=== PATIENT | female | born 1945 | race Caucasian/White ===

== ENCOUNTER → 2016-08-09 | Outpatient (CLI) | payer OTHER | LOC: RAD 10:54 | DX: Z12.31 Encounter for screening mammogram for malignant neoplasm of breast (principal) ==

== ENCOUNTER → 2018-06-25 | Outpatient (CLI) | payer OTHER | LOC: NUC 04-09 01:25 | DX: Z12.31 Encounter for screening mammogram for malignant neoplasm of breast (principal); M81.0 Age-related osteoporosis without current pathological fracture; Z78.0 Asymptomatic menopausal state ==

== ENCOUNTER 2019-04-01 14:20 | Emergency (ER) | payer OTHER ==
[~2019-04-01] VITALS: Ht 167.6 cm; Wt 51.3 kg
[2019-04-01] MEDS ORDERED: NORCO 5-325 TA1 EAC1 PO (16:48)
[2019-04-01 17:07] VITALS: BP 170/45
== END 2019-04-01 17:08 | disposition home or self-care (01) ==
LOC: ER 14:20
DX: S52.021A Displaced fracture of olecranon process without intraarticular extension of right ulna, initial encounter for closed fracture (principal); E11.9 Type 2 diabetes mellitus without complications; W00.2XXA Other fall from one level to another due to ice and snow, initial encounter; Y93.89 Activity, other specified; Y92.89 Other specified places as the place of occurrence of the external cause; Y99.8 Other external cause status

== ENCOUNTER 2019-04-04 12:06 | Day surgery (SDC) | payer OTHER ==
[~2019-04-04 12:06] MED LIST: NORCO 5-325 TA1 EAC1 PO
[2019-04-04 14:33] LABS: HEMATOCRIT 34.4 % (37.0-47.0); HEMOGLOBIN 11.3 gm/dL (12.0-15.0); MCH 30.3 pg (26.0-34.0); MCHC 32.9 g/dL (28.0-37.0); MCV 92.3 fL (80.0-100.0); RBC 3.73 mil/uL (4.20-5.00); RDW 14.2 % (10.5-14.5); WBC 6.9 thou/uL (4.0-11.0)
[2019-04-04 14:42] LABS: CALCIUM 9.7 mg/dL (8.5-10.1); CREATININE 0.9 mg/dL (0.6-1.0); POTASSIUM 5.4 mmol/L (3.5-5.1)
--- NOTE | 2019-04-04 22:14 | O ---
[facility] [address] [place] [address] OPERATIVE REPORT Name: LIVE LOPEZ Room #: DEP [facility].#: [id number] Admission: 04/04/19 Attend Phys: Hong Marrufo MD Discharge: 04/04/19 Date of : 41 Report #: [id number] THIS REPORT FOR: //name// CC: Hong Childerse Jordan DATE OF SERVICE: 04/04/2019 SERVICE: Orthopedics. FACILITY: [facility]. SURGEON: Hong Marrufo MD BRICK MACHINE OPERATOR: Samira Ortiz NP. INDICATION FOR BRICK MACHINE OPERATOR: Extremity positioning, retraction, assistance with the provisional fixation and definitive fixation. PREOPERATIVE DIAGNOSES: Comminuted intra-articular displaced right olecranon fracture. POSTOPERATIVE DIAGNOSIS: Comminuted intra-articular displaced right olecranon fracture. PROCEDURE: Open reduction and internal fixation, right olecranon fracture with plate. COMPLICATIONS: None. DRAINS: None. SPECIMENS: None. ANESTHESIA: General with regional. ESTIMATED BLOOD LOSS: 15 mL. FINDINGS: Synthes olecranon plate. HISTORY AND INDICATIONS: The patient is a 73-year-old right-hand dominant female who fell sustaining a comminuted intraarticular fracture, right olecranon. She was indicated for surgical treatment. Risks, benefits, alternatives, and indication of surgery discussed with her and her daughter and they gave full informed consent and wished to move forward with surgery. Risks include but not limited to pain, bleeding, infection, injury to nerves or blood [facility] [place] [address] OPERATIVE REPORT Name: LIVE LOPEZ Room #: DEP [facility] M..#: [id number] Admission: 04/04/19 Attend Phys: Hong Marrufo MD Discharge: 04/04/19 Date of : 41 Report #: [id number] vessels, malunion, nonunion, symptomatic hardware, need for further surgery including hardware removal and revision as well as complications related to anesthesia such as stroke, heart attack, pulmonary complications, thromboembolic disease and . Despite these risks, she wished to proceed. PROCEDURE IN DETAIL: After right upper extremity was correctly identified as the operative extremity, the patient underwent placement of single shot regional nerve block. She was then taken to the operating room where general anesthesia was induced without complication. She was turned into lateral decubitus position with the right side up, left side down padded appropriately. Prophylactic antibiotics were administered at appropriate time. Time-out procedure was performed. Right upper extremity was prepped and draped in standard sterile fashion prior to the timeout. Esmarch was used. Tourniquet inflated to 250 mmHg. Total tourniquet time was approximately 70 minutes. Standard posterior approach was made to the elbow and the fracture was exposed. The fracture was displaced further and the fracture hematoma was evacuated. The joint was thoroughly irrigated. There were essentially 3 segments. There was a large olecranon tip fragment. There was a second articular fragment that was radial in the metaphyseal bone and there was a shaft fragment. There was some other comminution. We left the soft tissue attachments intact to allow for some continued stability. The 2 articular segments on the olecranon side were anatomically reduced against the humerus and the elbow was extended and good cortical fixation was achieved in the posterior cortex. The plate was then applied to the bone and was provisionally fixed with K wires on both sides. We then placed the distal compression screw and this provided good compression across the fracture and then placed locking screws in the proximal fragment and then I placed the so-called home run screw across the fracture providing compression as well with a locking screw and then checked the fixation and the alignment and reduction once again with the x-ray in multiple planes, which had been done prior to placement of any proximal screws while the K-wires were still in place. I was happy with the appearance. There was no evidence of intra-articular fracture. We then placed a second shaft screw along the oval hole and then placed this in decompression loosening both the proximal locking and the first shaft compression screw and then adding some additional compression across the fracture. This provided excellent reduction and compression across the fracture. There was one additional metaphyseal segment that was displacing radially, so I reduced this and then placed a K-wire across the fracture and then prior to exiting the ulnar sided cortex, bent and cut the K-wire and then drove it across the fracture. It was in a stable position at this point. We used x-rays in multiple planes throughout the procedure, confirming that there was no articular penetration and the reduction was concentric along the distal humerus. Final screws were placed in the locking holes proximally and then in the metaphysis on the distal side of the fragment and then a final cortical screw was placed distally with therefore 6 cortices of nonlocking shaft screws. Final x-rays were taken. We took it through full range of motion and everything was stable and there was no mechanical [facility] [address] [place] [address] OPERATIVE REPORT Name: LIVE LOPEZ Room #: DEP [facility] Patience#: [id number] Admission: 04/04/19 Attend Phys: Hong Marrufo MD Discharge: 04/04/19 Date of : 41 Report #: [id number] impingement. The wound was then copiously irrigated. A deep layer was closed over the plate and then the skin was closed with 2-0 Vicryl followed by 3-0 nylon in diagonal mattress suture fashion. Sterile dressing was applied followed by a well-padded long arm posterior splint. The patient was awakened from anesthesia and taken to recovery room in stable condition. No complications. All counts were correct. <ELECTRONICALLY SIGNED> By: Hong Marrufo MD 04/04/19 2214 [id number] Hong Marrufo MD /nt
== END 2019-04-04 19:25 | disposition home or self-care (01) ==
LOC: TBA 12:06 → OR 12:06 → TBA 12:08 → OR 19:25
PROVIDERS: Anesthesiology
DX: S52.021A Displaced fracture of olecranon process without intraarticular extension of right ulna, initial encounter for closed fracture (principal); E10.9 Type 1 diabetes mellitus without complications; E78.00 Pure hypercholesterolemia, unspecified; E03.9 Hypothyroidism, unspecified; M19.90 Unspecified osteoarthritis, unspecified site; Z98.890 Other specified postprocedural states; Z79.899 Other long term (current) drug therapy; Z79.891 Long term (current) use of opiate analgesic; Z96.642 Presence of left artificial hip joint; Z80.3 Family history of malignant neoplasm of breast; Z83.3 Family history of diabetes mellitus; Z80.8 Family history of malignant neoplasm of other organs or systems; Z82.49 Family history of ischemic heart disease and other diseases of the circulatory system; W18.39XA Other fall on same level, initial encounter; Y93.89 Activity, other specified; Y92.89 Other specified places as the place of occurrence of the external cause; Y99.8 Other external cause status
CPT/HCPCS: 50010; 50101; 50386; 55430; 56527; 56528; 57091; 57178; 62110; 62900; 70005